=== PATIENT | male | born 1935 | race Caucasian/White ===

== ENCOUNTER 2020-06-23 11:46 | Outpatient (CLI) | payer MEDICARE, SELFPAY ==
[2020-06-24 01:34] LABS: SARS-CoV-2 RNA PCR Negative
== END 2020-06-23 11:47 | disposition home or self-care (01) ==
PROVIDERS: PCP Family Medicine; Visit Provider Family Medicine
DX: Z20.828 Contact with and (suspected) exposure to other viral communicable diseases (principal)
CPT/HCPCS: 87635; C9803; U0003

== ENCOUNTER 2021-01-16 11:52 | Emergency (ER) | payer MEDICARE, SELFPAY ==
[2021-01-16 12:00] VITALS: BP 140/67; PULSE 93; RESP 20; TEMP 36.8; O2SAT 98
[2021-01-16 12:26] LABS: Basophils Absolute Auto 0.04 K/mm3 (0.00-0.10); Basophils Percent Auto 0.3 % (0.0-1.0); Eosinophils Absolute Auto 0.01 K/mm3 (0.02-0.50); Eosinophils Percent Auto 0.1 % (1.0-6.0); Hematocrit 42.1 % (37.0-46.0); Hemoglobin 13.7 g/dL (12.4-15.3); Immature Granulocyte Absolute 0.05 K/mm3 (0.00-0.00); Immature Granulocyte Percent A 0.4 % (0.0-0.0); Lymphocytes Absolute Auto 0.52 K/mm3 (1.10-4.50); Lymphocytes Percent Auto 3.7 % (18.0-42.0); Mean Corpuscular HGB Conc 32.5 g/dL (32.0-36.0); Mean Corpuscular Hemoglobin 29.6 pg (27.0-31.0); Mean Corpuscular Volume 90.9 fL (78.0-102.0); Mean Platelet Volume 9.5 fl (8.7-11.0); Monocytes Absolute Auto 0.98 K/mm3 (0.10-0.90); Monocytes Percent Auto 6.9 % (2.0-11.0); Neutrophils Absolute Auto 12.6 K/mm3 (1.7-7.2); Neutrophils Percent Auto 88.6 % (50.0-70.0); Platelet Count Result 275 K/mm3 (150-420); Red Blood Count 4.63 M/mm3 (4.70-6.10); Red Cell Distribution Width 13.6 % (11.6-14.4); White Blood Count 14.2 K/mm3 (4.8-10.8)
[2021-01-16] MEDS: LACTATED RINGERS 1,000 ML 500 ML IV CONT (12:34)
[2021-01-16 12:47] LABS: Alanine Aminotransferase 25 U/L (16-63); Albumin Level 2.7 g/dL (3.4-5.0); Alkaline Phosphatase 113 U/L (46-116); Anion Gap 7 mmol/L (8-16); Aspartate Amino Transferase 15 U/L (15-37); Bilirubin,Total 0.4 mg/dL (0.00-1.00); Blood Urea Nitrogen 21 mg/dL (7-18); Calcium 8.5 mg/dL (8.5-10.1); Carbon Dioxide 26 mmol/L (21-32); Chloride 102 mmol/L (98-108); Estimated CRCL calculation 47 ml/min; Estimated Glomerular Filt Rate > 60; Glucose 150 mg/dL (70-99); Lactic Acid Reflex 1.3 mmol/L (0.4-2.0); Osmolality Calculated 286 mOsm/kg (285-295); Potassium 4.2 mmol/L (3.5-5.1); Sodium 135 mmol/L (136-145)
[2021-01-16 12:47] LABS: NT Pro B Type Natriuretic Pept 833 pg/mL (0-450)
--- NOTE | 2021-01-16 12:57 | ED.NAVMDI ---
HPI - Nausea/Vomiting/Diarrhea General Chief complaint: Nausea/Vomiting/Diarrhea Stated complaint: DR SENT PT TO ER Source: patient and family Mode of arrival: ambulatory Limitations: no limitations History of Present Illness HPI Narrative: Patient states he had loose stools at home, and is feeling weak. He thinks he is dehydrated. He was reportedly on Amoxil for a abscessed tooth. He states he has had several loose stools at home and complains of abdominal cramping. No fever no chills. He comes in because of continued loose stools moderately severe, ongoing, and abdominal cramps. No other symptoms. He states abdominal cramps and loose stools have gone on since . He has not taken anything for these loose stools. MD elicited complaint: diarrhea Pertinent past history: alcohol abuse Associated nausea: No Associated abdominal pain: Yes (cramping) Pain consistency: intermittent Severity: mild Quality: cramping Exacerbating factors: none Relieving factors: bowel movement Context: recent antibiotic use Associated symptoms: denies other symptoms Related Data Home Medications Medication Instructions Recorded Confirmed aspirin 81 mg PO DAILY 01/16/21 01/16/21 omeprazole 40 mg PO DAILY 01/16/21 01/16/21 Allergies Allergy/AdvReac Type Severity Reaction Status Date / Time No Known Allergies Allergy Unknown Verified 11/08/14 10:30 Review of Systems Constitutional: Constitutional: Reports fatigue and Reports weakness Comments: Recent abscessed tooth, now improved. Eyes: Eyes: Reports no additional eye complaints ENT: Reports system reviewed and no additional complaints, except as documented Cardiovascular: Cardiovascular: Reports no additional cardiovascular complaints Respiratory: Respiratory: Reports no additional respiratory complaints Gastrointestinal: Gastrointestinal: Reports abdominal pain and Reports diarrhea Genitourinary: Genitourinary: Reports no additional male genitourinary complaints Musculoskeletal: Musculoskeletal: Reports no additional musculoskeletal complaints Integumentary/Breasts: Skin/Breast: Reports system reviewed and no additional complaints, except as docu Neurologic: Reports system reviewed and no additional complaints, except as documented Psychiatric: Psychiatric: Reports no additional psychiatric complaints Endocrine: Endocrine: Reports no additional endocrine complaints Hematologic/Lymphatic: Hematologic/Lymphatic: Reports no additional hematologic/lymphatic complaints Allergic/Immunologic: Allergic/Immunologic: Reports no additional allergic/immunologic complaints [facility] Past Medical History Medical History (Updated 01/16/21 @ 14:26 by Franklin Pat MD) CAD (coronary artery disease) Diverticulitis H/O gastroesophageal reflux (GERD) Hyperlipemia Surgical History Surgical History (Updated 01/16/21 @ 13:00 by Franklin Pat MD) H/O hernia repair Hx of CABG S/P AAA repair S/P small bowel resection Family History Family History (Updated 10/07/14 @ 10:01 by DOCTOR UNKNOWN) Other Family history of kidney disease Social History Social History (Updated 01/16/21 @ 12:59 by Franklin Pat MD) Smoking status: Former smoker Smoking end date: 09/23/85 Alcohol intake: current Alcohol use details: formerly heavier drinker, now daily still, but less, [place] Exam Const: General: no acute distress and alert Orientation/consciousness: patient oriented x3 HENMT: Head: normal to inspection Ears: external ears normal General nose exam: Normal external nose present Other: I see the tooth that was abscessed. It appears to have been the upper left 6 year molar. The abscess appears to be resolved now, with some very minimal remaining erythema. He denies discomfort there. Eyes: Cornea: corneas normal Neck: Neck: normal visual inspection Chest: Chest palpation & inspection: normal inspection of the chest Resp: Effort & Inspecti
[2021-01-16] MEDS: DICYCLOMINE HCL INJ 20 MG/2 ML VIAL IM (13:09)
[2021-01-16 14:31] VITALS: BP 134/78; PULSE 80; RESP 20; TEMP 37.1; O2SAT 99
== END 2021-01-16 14:41 | disposition home or self-care (01) ==
PROVIDERS: Emergency Provider Emergency Medicine; PCP Family Medicine
DX: A04.72 Enterocolitis due to Clostridium difficile, not specified as recurrent (principal); I25.10 Atherosclerotic heart disease of native coronary artery without angina pectoris; E78.5 Hyperlipidemia, unspecified; Z87.891 Personal history of nicotine dependence
CPT/HCPCS: 36415; 80053; 83605; 83880; 85025; 87324; 89055; 96360; 96361; 96372; 99283; 99284; J0500; J7120